=== PATIENT | female | born 1985 | race Caucasian/White ===

== ENCOUNTER 2017-11-14 10:28 | Emergency (ER) | payer OTHER ==
[2017-11-14] MEDS ORDERED: Ibuprofen TAB* 600 MG PO ONE (12:23)
--- NOTE | 2017-11-14 12:29 | ED ---
Throat Pain/Nasal Congestion - HPI Summary HPI Summary: 32 female presents to ED with complaints of right ear pain that began last night , 11/13/17. States she has had some clear discharge coming from right ear. Recently had a cold but has since improved. Denies any OTC medications. Denies fever/chills. No other complaints. No PMHx. Does have some decreased hearing in the right ear, like it is "full". Has not been swimming lately. - History of Current Complaint Chief Complaint: EDEarPain Time Seen by Provider: 11/14/17 10:37 Hx Obtained From: Patient Onset/Duration: Sudden Onset, Lasting Days - 1 Severity: Moderate Cough: None - Allergies/Home Medications Allergies/Adverse Reactions: Allergies Allergy/AdvReac Type Severity Reaction Status Date / Time No Known Allergies Allergy Verified 11/14/17 10:34 PMH/Surg Hx/FS Hx/Imm Hx Endocrine/Hematology History: Denies: Hx Anticoagulant Therapy Cardiovascular History: Denies: Hx Hypertension Respiratory History: Denies: Hx Asthma - Surgical History Surgery Procedure, Year, and Place: n/a - Immunization History Immunizations Up to Date: Yes Infectious Disease History: No Infectious Disease History: Denies: Traveled Outside the [place] in Last 30 Days - Family History Known Family History: Positive: None - Social History Alcohol Use: None Substance Use Type: Reports: None Smoking Status (MU): Former Smoker Review of Systems Constitutional: Negative Positive: Sore Throat - resolved, Ear Ache, Nasal Discharge Cardiovascular: Negative Respiratory: Negative Positive: Cough - resolved Neurological: Negative All Other Systems Reviewed And Are Negative: Yes Physical Exam Triage Information Reviewed: Yes Vital Signs On Initial Exam: Initial Vitals Temp Pulse Resp BP Pulse Ox 97.1 F 87 14 133/76 97 11/14/17 10:34 11/14/17 10:34 11/14/17 10:34 11/14/17 10:34 11/14/17 10:34 Vital Signs Reviewed: Yes Appearance: Positive: Well-Appearing, No Pain Distress, Well-Nourished Skin: Positive: Warm, Skin Color Reflects Adequate Perfusion, Dry. Negative: Cold, Numb, Cyanosis @, Pale, Erythema @ Head/Face: Positive: Normal Head/Face Inspection Eyes: Positive: Normal, EOMI, MATHEUS, Conjunctiva Clear ENT: Positive: Pharynx normal, Nasal congestion, TM red - right- although only able to visualize portion of TM due to obstruction from all discharge and erythema in EAC of right ear. left ear normal. Negative: Pharyngeal erythema, Nasal drainage, Tonsillar swelling, Tonsillar exudate Neck: Positive: Supple, Nontender, No Lymphadenopathy Respiratory/Lung Sounds: Positive: Clear to Auscultation, Breath Sounds Present. Negative: Rales, Rhonchi, Wheezes Cardiovascular: Positive: Normal, RRR, Pulses are Symmetrical in both Upper and Lower Extremities. Negative: Murmur, Rub Musculoskeletal: Positive: Normal, Strength/ROM Intact Neurological: Positive: Normal, Sensory/Motor Intact, Alert, Oriented to Person Place, Time Diagnostics - Vital Signs Vital Signs Temp Pulse Resp BP Pulse Ox 11/14/17 10:34 97.1 F 87 14 133/76 97 - Laboratory Lab Statement: Any lab studies that have been ordered have been reviewed, and results considered in the medical decision making process. EENT Course/Dx - Course Course Of Treatment: appears to be suffering from right otitis externa. will treat with ciprodex. although unable to visualize entire TM will send over oral AB if symptoms do not improve or worsen. patient does not have PCP. follow up. aware of worsening signs and symptoms to watch out for. ibuprofen, warm compresses, avoid swimming and do not submerge in water, do not stick anything in ear. - Differential Diagnoses Differential Diagnoses: Otitis Externa, Otitis Media - Diagnoses Provider Diagnoses: Otitis externa of right ear Discharge - Discharge Plan Condition: Good Disposition: HOME Prescriptions: Amoxicillin PO (*) [Amoxicillin 500 MG CAP*] 500 mg PO Q12H #20 cap Ciproflox/Dexameth OTIC.SUSP* [Ciprodex OTIC.SUSP*] 4 drop RIGHT EAR BID #1 btl Patient Education Materials: Otitis Externa (ED) Referrals: [facility] [place] [facility] [Outside] Additional Instructions: Take prescribed ear drop as directed for the next 7 days. Do not put anything else into the ear, do not submerge in water, avoid swimming. Ibuprofen for pain and inflammation. Warm compresses on outside of ear to soothe discomfort, dry ear well. If symptoms improve in the next 3-4 days you do not have to take oral antibiotic (amoxicillin) however it is not improving or worsening please then take oral antibiotic at this time, ONLY if needed. Any new or worsening symptoms please seek medical attention. Follow up with PCP for recheck in 7 days, sooner if needed.
[2017-11-14 12:39] VITALS: BP 111/79
== END 2017-11-14 12:38 | disposition home or self-care (01) ==
LOC: ED 10:28
DX: H60.91 Unspecified otitis externa, right ear (principal); Z87.891 Personal history of nicotine dependence
CPT/HCPCS: 99281